=== PATIENT | female | born 1955 | race Caucasian/White ===

== ENCOUNTER 2016-05-19 08:45 | Day surgery (SDC) | payer OTHER ==
[~2016-05-19 08:45] MED LIST: ceFAZolin 2 GM/DEXTROSE 100 ML IV ONE
[2016-05-19] MEDS ORDERED: LR 1,000 ML IV ONE (09:33)
[2016-05-19] MEDS ORDERED: CEFAZOLIN 2 GM/DEXTROSE/100 ML BAG IV ONE (09:33)
[2016-05-19] MEDS ORDERED: BUPIVACAINE/EPI 0.25% 30 ML SDV ONE (10:23)
[2016-05-19] MEDS ORDERED: BUPIVACAINE 0.25% 30 ML SDV ONE (10:23)
[2016-05-19] MEDS ORDERED: BACITRACIN 50,000 UNITS/10 ML SYR IRR ONE (10:23)
[2016-05-19] MEDS ORDERED: MIDAZOLAM 2 MG/2 ML VIAL ONE (10:30)
[2016-05-19] MEDS ORDERED: fentaNYL 100 MCG/2 ML INJ ONE (13:11)
--- NOTE | 2016-05-19 16:26 | GOP ---
[f rep st] OPERATIVE REPORT DATE OF OPERATION: 05/19/2016 SURGEON: Jim Aviles DPM [employer] ADVISER: None. ANESTHESIA: Local with MAC by Dr. Aldridge. PREOPERATIVE DIAGNOSIS: 1. Instability, left mid foot. 2. Hallux abductovalgus, left. 3. Hallux interphalangeus, left. POSTOPERATIVE DIAGNOSIS: 1. Instability, left mid foot. 2. Hallux abductovalgus, left. 3. Hallux interphalangeus, left. PROCEDURE PERFORMED: 1. First metatarsal cuneiform joint fusion, left. 2. Medial and intermediate cuneiform joint fusion, left. 3. Modified Clement bunionectomy, left. 4. Missael osteotomy, left. FINDINGS: ESTIMATED BLOOD LOSS: Minimal. DESCRIPTION OF PROCEDURE: The patient presented to [facility] who was cleared for the intended procedure. The patient was taken to the operating room, placed on the table in supine posit ion. IV sedation was started per the anesthesia department. Foot was anesthetized in infiltrative n erve block fashion. Foot was prepped, scrubbed and draped in usual sterile fashion. Following exsan guination by elevation of Esmarch bandage, pneumatic ankle tourniquet was inflated to 225 mmHg. At t his time, attention was directed to the medial aspect of the left foot at the level of the medial cun eiform. A linear incision was started running distally over the medial cuneiform and 1st metatarsal base before making a lazy-S incision onto the dorsal aspect of the foot, continuing across the metata rsophalangeal joint and ending at the hallux interphalangeal joint. This incision was carried deep u tilizing sharp and blunt dissection, making sure that all neurovascular structures were identified an d retracted at this time. All superficial bleeders were cauterized. The incision was carried down d eep to the level of the joint capsule at the metatarsophalangeal joint. At this time, an inverted L capsulotomy was performed. Capsular tissues were dissected free medially and laterally to allow for adequate exposure to the head of the 1st metatarsal. The joint surface did not show any substantial degenerative arthritic changes at this time. There was noted to be hypertrophied medial eminence whi ch was resected with a sagittal saw before being smoothed with a power bur. The area was flushed wit h copious amounts of sterile saline at this time. Upon completion of this, attention was redirected into the 1st intermetatarsal space, where again, utilizing sharp and blunt dissection was carried lin n to the level of the deep transverse ligament. The deep transverse ligament was sharply incised wit h insertion at the base of the proximal phalanx and tagged for potential later transfer to the dorsal aspect of the metatarsal neck. Eventually, the adductor tendon was sectioned and removed as the tra nsfer was not necessary. The lateral release was completed before a McGlamry elevator was introduced to make sure the sesamoidal apparatus was freed up from the 1st metatarsal head. At this time, ther e was still noted to be considerable laxity at the metatarsal cuneiform articulations. It was decide d that fusion of those joints would be performed. Dissection was carried down to the level of the 1s t metatarsal cuneiform joint region. At this time, a linear capsulotomy was performed. Capsular tis sues were dissected free medially and laterally to allow for adequate exposure to the joint surface. At this time, utilizing a sagittal saw, the cartilaginous surface from the medial cuneiform was [place] l[place]ha. The cartilaginous surface from the base of the proximal phalanx was also removed with a sagitta l saw, only instead of parallel to the bone like the medial cuneiform, this one was removed in an ang ular fashion running from proximal lateral to distal medial, resulting in a 2 mm wedge of bone that w as dissected free and removed. Upon completion of this, both sides of the bones were prepared for fu roula by subcondylarly drilling with a K-wire. Good healthy bleeding bone was identified. The area w as flushed with copious amounts of sterile saline at this time. The metatarsal was transposed latera lly and re-impacted upon the shaft in the appropriate alignment. It was held temporarily with a K-wi re fixation. C-arm fluoroscopy at this time showed good reduction of the intermetatarsal angle and a normal sesamoid position. It was decided that the Arthrex plantar plate would be utilized to stabil ize the site. The plate was placed over the level of the joint, and the 2 distal screws were drilled in a locking fashion. Two 16 mm screws were introduced. It was at this point, the interfragmentary screw through the plate was drilled appropriately, and a 3.5 x 30 mm cortical screw was placed acros s the area. Before completely tightening this screw, the K-wire fixation was removed. The screw was tightened, and good compression was obtained at the fusion site. The 2 proximal screws then were al so drilled in a locking fashion, this time making sure to place the screws through the medial and int o the intermediate cuneiform. These were measured at 30 and 36 mm. Excellent stability around this complex was appreciable at this time. The area was flushed with copious amounts of sterile saline be fore capsule at both the metatarsal cuneiform and metatarsal phalangeal joint were closed with 2 and 3-0 Vicryl. C-arm fluoroscopy continued to show good compression at the fusion site and an excellent intermetatarsal angle, but lateral deviation of the hallux. It was decided that an Missael osteotomy w as also necessary. Dissection was carried down over the level of the proximal phalanx, again utilizi ng sharp, blunt dissection. This was carried down to the periosteum. A periosteal incision was made , and dissected free medially and laterally to allow for adequate exposure to the proximal phalanx. At this time, 2 osteotomies were performed running from proximal lateral to distal medial, making luh e to leave the lateral cortex of bone intact and resulting in a 3 mm wedge of bone medially. The wed ge of bone was dissected free and removed. A temporary bone clamp was inserted, and the area was pre pped for insertion of a 2.7 cortical screw. Utilizing strict AO technique, a 16 mm screw was introdu zane, and good compression was obtained. The temporary bone clamp was removed. X-ray evaluation at t his point showed a rectus alignment to the joint. The area was flushed with copious amounts of steri le saline before the periosteum was reapproximated with 5-0 Vicryl, followed by subcutaneous closure along the entire incision with 5-0 Vicryl and skin closure with 4 and 5-0 nylon. Upon completion of this, the area was dressed with Betadine-soaked Adaptics, 4x4s, Shabbir, and Coban. The patient was pl aced into a posterior splint and will be kept completely nonweightbearing for the next 2-4 weeks afte r the pneumatic ankle tourniquet had been released for a total tourniquet time of 92 minutes. PATHOLOGY: None. HEMOSTASIS: PAT 225 mmHg by 92 minutes. MATERIALS: Arthrex plantar Lapidus plate, left; Arthrex 3.5 locking screws by 16, 16, 30 and 36 mm; Arthrex 3.5 cortical screw by 30 mm; 2.7 cortical screw by 16 mm. INJECTABLES: 20 cc in 9:1 ratio, 0.25% Marcaine plain, 0.25% Marcaine with epi preoperatively. COMPLICATIONS: None. /[id number]/MODL
== END 2016-05-19 14:25 | disposition home or self-care (01) ==
LOC: FSGY 08:45
PROVIDERS: ATTEND Podiatrist Primary Podiatric Medicine
PROC: 0QSP04Z Reposition Left Metatarsal with Internal Fixation Device, Open Approach (ICD-10-PCS; principal; 2016-05-19 10:30)
PROC: 0QBP0ZZ Excision of Left Metatarsal, Open Approach (ICD-10-PCS; principal; 2016-05-19 10:30)
PROC: 0SGL04Z Fusion of Left Tarsometatarsal Joint with Internal Fixation Device, Open Approach (ICD-10-PCS; principal; 2016-05-19 10:30)
PROC: 0SGJ04Z Fusion of Left Tarsal Joint with Internal Fixation Device, Open Approach (ICD-10-PCS; principal; 2016-05-19 10:30)
DX: M20.12 Hallux valgus (acquired), left foot (principal); M20.5X2 Other deformities of toe(s) (acquired), left foot; M25.375 Other instability, left foot; E03.9 Hypothyroidism, unspecified; E11.9 Type 2 diabetes mellitus without complications; I27.2 Other secondary pulmonary hypertension; M31.30 Wegener's granulomatosis without renal involvement; M85.80 Other specified disorders of bone density and structure, unspecified site; G47.30 Sleep apnea, unspecified
CPT/HCPCS: 28299; 28740; C1769; C1713; J0690; J2250; J3010

== ENCOUNTER → 2016-07-04 | Outpatient (CLI) | payer OTHER | LOC: BMCIMAGING 10:53 | PROVIDERS: ATTEND Internal Medicine | DX: Z13.820 Encounter for screening for osteoporosis (principal); M85.80 Other specified disorders of bone density and structure, unspecified site; E03.9 Hypothyroidism, unspecified; E88.81 Metabolic syndrome and other insulin resistance; Z79.899 Other long term (current) drug therapy ==

== ENCOUNTER → 2016-08-23 | Outpatient (CLI) | payer OTHER | LOC: BMCIMAGING 14:08 | DX: Z12.31 Encounter for screening mammogram for malignant neoplasm of breast (principal); Z80.3 Family history of malignant neoplasm of breast | CPT/HCPCS: G0202 ==

== ENCOUNTER → 2017-01-31 | Outpatient (CLI) | payer OTHER | LOC: BMCIMAGING 11:37 | PROVIDERS: ATTEND Emergency Medicine | DX: S61.412A Laceration without foreign body of left hand, initial encounter (principal) ==

== ENCOUNTER 2017-06-15 18:27 | Emergency (ER) | payer OTHER ==
--- NOTE | 2017-06-15 18:49 | EDPHY ---
H & P Stated Complaint: right low back pain, getting worse Time Seen by Provider: 06/15/17 18:49 HPI/ROS: HPI: This is a 61-year-old female who presents with Chief Complaint: right low back pain, getting worse Location: Right low back/pelvic Quality: Sharp pain Duration: 24 hr Signs and Symptoms: No bleeding, no radiation, no numbness, no weakness, no tingling, no incontinence, + decreased range of motion, no swelling, + pain Timing: Acute Severity: 10 out 10 Context: Patient has a history of Taya's, sepsis right hip replacement presents with sudden onset of sharp low back/pelvic pain, that is constant, worsened with movement, nonradiating in nature for the last 24 hr. Her oxycodone to 15 mg twice daily is not relieving her pain at all. She was put on a low-dose steroid taper 1 week ago by her analysis lead without any relief. She had facet injections at her L4-L5 outpatient. MRI of her lumbar spine in April showed L4-L5-L5-S1 disc herniation mild with degenerative disc disease. Patient is ambulatory but slow and purposeful. Denies any urinary symptoms/fever/abdominal pain/nausea/vomiting/paresthesias/ incontinence. Modifying Factors: Oxycodone Comment: ROS: see HPI Constitutional: No fever, no chills, no weight loss Eyes: No blurred vision Respiratory: No shortness of breath, no cough Cardiovascular: No chest pain Gastrointestinal: No nausea, no vomiting no diarrhea Genitourinary: No dysuria Extremities: No myalgias Neurologic: No weakness, no numbness Skin: No rashes Hematologic: No bruising, no bleeding MEDICAL/SURGICAL/SOCIAL HISTORY: Medical/surgical history: Taya Granulomatosis. pulmonary nodules. HIP surgery. and no septum. sleep apnea Social history: In a relationship CONSTITUTIONAL: Moderate distress, writhing in bed, obese adult white female, awake and alert, no obvious distress HEENT: Atraumatic and normocephalic. NECK: supple, no midline tenderness, flexion 45 degrees, extension 45 degrees, right and left lateral flexion 45 degrees. No meningismus. Cardiovascular: Normal S1/S2, regular rate, regular rhythm, without murmur rub or gallop. PULMONARY/CHEST: Symmetrical and nontender. no crepitus. Clear to auscultation bilaterally. Good air movement. No accessory muscle usage. ABDOMEN: Soft, nondistended, nontender, no ecchymosis. PELVIC: Mild pain with rocking; bilateral hips flexion 75 degrees, extension 0 degrees, mild no pain internal rotation and no pain external rotation. Reproducible pain on right SI. BACK: No midline tenderness, no paraspinous spasm, deep tendon reflexes 2/2, moderate pain with straight leg raise EXTREMITIES: 2/2 pulses, strength 5/5, DIP/PIP/MCP flexion/extension intact with good light touch sensation. no deformities, no clubbing, no cyanosis or edema. NEUROLOGICAL: no focal neuro deficits. GCS 15. Light touch sensation intact. SKIN: Warm and dry, no erythema. no rash. Good capillary refill. Source: Patient, Family (Partner) Exam Limitations: No limitations - Personal History Current Tetanus Diphtheria and Acellular Pertussis (TDAP): Yes - Medical/Surgical History Hx Asthma: No Hx Chronic Respiratory Disease: Yes Hx Diabetes: No Hx Cardiac Disease: No Hx Renal Disease: No Hx Cirrhosis: No Hx Alcoholism: No Hx HIV/AIDS: No Hx Splenectomy or Spleen Trauma: No Other PMH: Wegners Granulomatosis. pulmonary nodules. HIP surgery. and no septum. sleep apnea - Social History Smoking Status: Never smoked Constitutional: Initial Vital Signs Temperature (C) 36.2 C 06/15/17 18:28 Heart Rate 68 06/15/17 18:28 Respiratory Rate 18 06/15/17 18:28 Blood Pressure 172/89 H 06/15/17 18:28 O2 Sat (%) 97 06/15/17 18:28 O2 Delivery Mode Room Air Allergies/Adverse Reactions: No Known Allergies Allergy (Verified 05/16/14 10:53) Home Medications: Medication Instructions Recorded Lansoprazole [Prevacid 30 mg] 30 mg PO DAILY 12/31/10 clonazePAM [Klonopin (*)] 0.5 mg PO BID 02/24/12 predniSONE 02/24/12 Levothyroxine Sodium [Tirosint] 112 mcg PO DAILY 05/16/14 Multivitamins [Tab-A-Nyasia] 1 each PO DAILY 05/16/14 oxyCODONE CR [Oxycontin] 05/16/14 oxyCODONE IR [Oxycodone Ir (RX)] 05/16/14 traZODone [traZODONE 50MG (RX)] 100 mg PO HS 05/16/14 Aspirin 05/18/16 Diazepam [Valium 5 MG (*)] 5 mg PO TID PRN #15 tab 06/15/17 methylPREDNISolone [Medrol Dose 1 each PO AD #0 ea 06/15/17 Jonas] Medical Decision Making - Diagnostics Imaging Results: Imaging Impressions Abdomen/Pelvis CT 06/15/17 19:04 Impression: 1. There is no CT evidence of nephrolithiasis or obstructive uropathy. 2. Status post hysterectomy and right hip arthroplasty. 3. Constipation, particularly involving the descending and transverse colon. Findings were discussed with Alma Mosqueda PA-C at 19:44, on 06/15/2017. Attention: This CT examination is specifically designed to evaluate patients who are clinically suspected of having acute obstructive uropathy. This examination does not use radiographic contrast, and as such, provides only a limited evaluation of the abdomen, pelvis, and retroperitoneum. If there is further clinical suspicion for pathological conditions other than obstructive uropathy, a complete CT evaluation of the abdomen and pelvis utilizing intravenous, oral, and rectal contrast should be considered. Pelvis X-Ray 06/15/17 19:05 Impression: No acute abnormality. Stable positioning of a right hip arthroplasty. ED Course/Re-evaluation: Labs, urinalysis, IV fluids, IV medications, pelvic x-ray, CT abdomen and pelvis scan without contrast ordered Given 1 L normal saline, IV fentanyl, IV Valium, IV Decadron By radiologist who advised that CT abdomen and pelvis scan shows no signs of stone, obstruction, appendicitis. Status post hysterectomy. Right-sided constipation. Pelvic x-ray my read shows moderate stool burden, hip replacement hardware in alignment SI joint mild degenerative changes Reassessed patient reports that pain is down to 6/10; IV Dilaudid given with adequate relief Plan is to discharge patient home; Medrol Dosepak; Valium p.r.n; constipation protocol Partner is a nurse he feels comfortable taking patient home and caring for her. No signs of neurovascular compromise/tenting of skin/compartment syndrome/ extremities and joints examined above and below area of concern and are neurovascularly intact. This patient was seen under the supervision of my secondary supervising physician. I evaluated care for this patient independently. Differential Diagnosis: Back pain including but not limited to muscular pain, herniated disc, spine fracture, intra-abdominal causes and urinary tract infection. - Data Points Laboratory Results: Laboratory Results 06/15/17 19:11 06/15/17 19:11 06/15/17 06/15/17 06/15/17 20:45 19:11 19:11 WBC 8.86 10^3/uL 10^3/uL (3.80-9.50) RBC 4.56 10^6/uL 10^6/uL (4.18-5.33) Hgb 14.1 g/dL g/dL (12.6-16.3) Hct 42.5 % % (38.0-47.0) MCV 93.2 fL fL (81.5-99.8) MCH 30.9 pg pg (27.9-34.1) MCHC 33.2 g/dL g/dL (32.4-36.7) RDW 12.8 % % (11.5-15.2) Plt Count 243 10^3/uL 10^3/uL (150-400) MPV 8.5 fL L fL (8.7-11.7) Neut % (Auto) 73.9 % % (39.3-74.2) Lymph % (Auto) 17.8 % % (15.0-45.0) Randolph % (Auto) 6.9 % % (4.5-13.0) Eos % (Auto) 0.8 % % (0.6-7.6) Baso % (Auto) 0.3 % % (0.3-1.7) Nucleat RBC Rel Count 0.0 % % (0.0-0.2) Absolute Neuts (auto) 6.54 10^3/uL H 10^3/uL (1.70-6.50) Absolute Lymphs (auto) 1.58 10^3/uL 10^3/uL (1.00-3.00) Absolute Monos (auto) 0.61 10^3/uL 10^3/uL (0.30-0.80) Absolute Eos (auto) 0.07 10^3/uL 10^3/uL (0.03-0.40) Absolute Basos (auto) 0.03 10^3/uL 10^3/uL (0.02-0.10) Absolute Nucleated RBC 0.00 10^3/uL 10^3/uL (0-0.01) Immature Gran % 0.3 % % (0.0-1.1) Immature Gran # 0.03 10^3/uL 10^3/uL (0.00-0.10) VBG Lactic Acid Sodium 135 mEq/L mEq/L (135-145) Potassium 4.1 mEq/L mEq/L (3.5-5.2) Chloride 102 mEq/L mEq/L (97-110) Carbon Dioxide 24 mEq/l mEq/l (22-31) Anion Gap 9 mEq/L mEq/L (8-16) BUN 11 mg/dL mg/dL (7-23) Creatinine 0.9 mg/dL mg/dL (0.6-1.0) Estimated GFR > 60 Glucose 97 mg/dL mg/dL (70-100) Calcium 9.0 mg/dL mg/dL (8.5-10.4) Total Bilirubin 0.7 mg/dL mg/dL (0.1-1.4) Conjugated Bilirubin 0.3 mg/dL mg/dL (0.0-0.5) Unconjugated Bilirubin 0.4 mg/dL mg/dL (0.0-1.1) AST 18 IU/L IU/L (14-46) ALT 30 IU/L IU/L (9-52) Alkaline Phosphatase 58 IU/L IU/L (38-126) Total Protein 6.6 g/dL g/dL (6.3-8.2) Albumin 3.9 g/dL g/dL (3.5-5.0) Urine Color PALE YELLOW Urine Appearance CLEAR Urine pH 6.0 (5.0-7.5) Ur Specific [place] 1.008 (1.002-1.030) Urine Protein NEGATIVE (NEGATIVE) Urine Ketones NEGATIVE (NEGATIVE) Urine Blood NEGATIVE (NEGATIVE) Urine Nitrate NEGATIVE (NEGATIVE) Urine Bilirubin NEGATIVE (NEGATIVE) Urine Urobilinogen NEGATIVE EU EU (0.2-1.0) Ur Leukocyte Esterase NEGATIVE (NEGATIVE) Urine Glucose NEGATIVE (NEGATIVE) 06/15/17 19:11 WBC RBC Hgb Hct MCV MCH MCHC RDW Plt Count MPV Neut % (Auto) Lymph % (Auto) Randolph % (Auto) Eos % (Auto) Baso % (Auto) Nucleat RBC Rel Count Absolute Neuts (auto) Absolute Lymphs (auto) Absolute Monos (auto) Absolute Eos (auto) Absolute Basos (auto) Absolute Nucleated RBC Immature Gran % Immature Gran # VBG Lactic Acid 0.9 mmol/L mmol/L (0.7-2.1) Sodium Potassium Chloride Carbon Dioxide Anion Gap BUN Creatinine Estimated GFR Glucose Calcium Total Bilirubin Conjugated Bilirubin Unconjugated Bilirubin AST ALT Alkaline Phosphatase Total Protein Albumin Urine Color Urine Appearance Urine pH Ur Specific [place] Urine Protein Urine Ketones Urine Blood Urine Nitrate Urine Bilirubin Urine Urobilinogen Ur Leukocyte Esterase Urine Glucose Medications Given: Discontinued Medications Dexamethasone (Decadron Injection) 8 mg IVP EDNOW ONE Stop: 06/15/17 19:06 Last Admin: 06/15/17 19:33 Dose: 8 mg Diazepam (Valium) 5 mg IVP EDNOW ONE Stop: 06/15/17 19:06 Last Admin: 06/15/17 19:33 Dose: 5 mg Diazepam (Valium 5 Mg Prepack#4) 1 btl TAKEHOME EDNOW ONE Stop: 06/15/17 21:16 Last Admin: 06/15/17 21:17 Dose: 1 btl Fentanyl (Sublimaze) 50 mcg IVP EDNOW ONE Stop: 06/15/17 19:05 Last Admin: 06/15/17 19:33 Dose: 50 mcg Hydromorphone HCl (Dilaudid) 1 mg IVP EDNOW ONE Stop: 06/15/17 20:25 Last Admin: 06/15/17 20:57 Dose: 1 mg Sodium Chloride (Ns) 1,000 mls @ 0 mls/hr IV EDNOW ONE; Wide Open PRN Reason: Protocol Stop: 06/15/17 19:05 Last Admin: 06/15/17 19:33 Dose: 1,000 mls Departure - Departure Disposition: Home, Routine, Self-Care Clinical Impression: Lumbar degenerative disc disease Strain of lumbar spine Qualifiers: Encounter type: initial encounter Qualified Code(s): S39.012A - Strain of muscle, fascia and tendon of lower back, initial encounter Constipation Qualifiers: Constipation type: drug induced constipation Qualified Code(s): K59.03 - Drug induced constipation Condition: Good Instructions: Constipation (ED), Low Back Strain (ED), Degenerative Disc Disease (ED) Additional Instructions: Please follow-up with your primary care provider and orthopedic/spinal specialist regarding lumbar degenerative disc disease and further outpatient interventions including epidural steroid injections. Referrals: Elida Gomez MD [Primary Care Provider] - As per Instructions Prescriptions: Diazepam [Valium 5 MG (*)] 5 mg PO TID PRN #15 tab PRN Reason: Spasms methylPREDNISolone [Medrol Dose Jonas] 1 each PO AD #0 ea
[2017-06-15] MEDS ORDERED: NS 1,000 ML IV ONE (19:04)
[2017-06-15] MEDS ORDERED: fentaNYL 100 MCG/2 ML INJ IVP ONE (19:04)
[2017-06-15] MEDS ORDERED: DEXAMETHASONE 4 MG/ML VIAL IVP ONE (19:05)
[2017-06-15] MEDS ORDERED: DIAZEPAM 10 MG/2 ML SYR IVP ONE (19:05)
[2017-06-15 19:20] LABS: PLATELET COUNT 243 10^3/uL (150-400)
[2017-06-15] MEDS ORDERED: HYDROmorphONE/DILAUDID 1 MG/ML INJ IVP ONE (20:24)
[2017-06-15] MEDS ORDERED: DIAZEPAM 5 MG PREPACK#4 BTL TAKEHOME ONE ×2 (21:11→21:15)
[2017-06-15 21:19] VITALS: BP 116/67; PULSE 66; RESP 16; TEMP 98.2; O2SAT 99
== END 2017-06-15 21:18 | disposition home or self-care (01) ==
DX: S39.012A Strain of muscle, fascia and tendon of lower back, initial encounter (principal); M51.36 Other intervertebral disc degeneration, lumbar region; K59.03 Drug induced constipation; E86.9 Volume depletion, unspecified; Z79.82 Long term (current) use of aspirin; X58.XXXA Exposure to other specified factors, initial encounter
CPT/HCPCS: 72170; 74176; 96361; 96374; 96375; 99285; J1100; J1170; J3010; J3360

== ENCOUNTER → 2017-08-25 | Outpatient (CLI) | payer OTHER | LOC: BMCIMAGING 13:51 | PROVIDERS: ATTEND Internal Medicine | DX: Z12.31 Encounter for screening mammogram for malignant neoplasm of breast (principal); Z80.3 Family history of malignant neoplasm of breast ==

== ENCOUNTER → 2018-07-13 | Outpatient (CLI) | payer OTHER | LOC: BMCIMAGING 07-05 13:34 | PROVIDERS: ATTEND Internal Medicine Rheumatology | DX: Z13.820 Encounter for screening for osteoporosis (principal); M85.89 Other specified disorders of bone density and structure, multiple sites; E07.9 Disorder of thyroid, unspecified; Z78.0 Asymptomatic menopausal state; Z79.52 Long term (current) use of systemic steroids ==

== ENCOUNTER → 2018-09-04 | Outpatient (CLI) | payer OTHER | LOC: BMCIMAGING 12:23 | PROVIDERS: ATTEND Internal Medicine | DX: Z12.31 Encounter for screening mammogram for malignant neoplasm of breast (principal); Z80.3 Family history of malignant neoplasm of breast ==

== ENCOUNTER → 2018-09-28 | Outpatient (CLI) | payer OTHER ==
[~2018-09-28] MED LIST changes: +IOPAMIDOL (ISOVUE 370) 100 ML BTL IV ONE; -ceFAZolin 2 GM/DEXTROSE 100 ML IV ONE
== END ==
LOC: FIMAGING 12:31
DX: I67.1 Cerebral aneurysm, nonruptured (principal); Z95.5 Presence of coronary angioplasty implant and graft
CPT/HCPCS: 70496; Q9967